=== PATIENT | male | born 1980 | race Caucasian/White ===

== ENCOUNTER → 2017-10-22 | Emergency (ER) | payer MEDICAID ==
[~2017-10-22] MED LIST: LIDOCAINE 4% CR TOP
[2017-10-22] MEDS: ACETAMINOPHEN 325 MG TAB PO (19:31)
[2017-10-22] MEDS: KETOROLAC 60 MG INJ IM (19:34)
== END | disposition home or self-care (01) ==
LOC: FTE 18:54
DX: J02.9 Acute pharyngitis, unspecified (principal); F17.210 Nicotine dependence, cigarettes, uncomplicated
CPT/HCPCS: 96372; 99284-25

== ENCOUNTER 2017-10-23 11:31 | Emergency (ER) | payer MEDICAID ==
[2017-10-23] MEDS: SOD CHLORIDE 0.9% 1,000 ML IV (13:21)
[2017-10-23] MEDS: METHYLPREDNISOLONE 125 MG INJ IV (13:23)
[2017-10-23] MEDS: KETOROLAC 15 MG INJ IV (13:23)
[2017-10-23] MEDS: CEFTRIAXONE 1 GM/50 ML (PMX) 50 ML IVPB (13:24)
== END 2017-10-23 15:10 | disposition home or self-care (01) ==
LOC: FTE 11:31
DX: J03.90 Acute tonsillitis, unspecified (principal); Z87.891 Personal history of nicotine dependence
CPT/HCPCS: 96361; 96365; 96375; 99284-25

== ENCOUNTER 2018-03-17 20:27 | Emergency (ER) | payer SELFPAY, MEDICAID ==
[2018-03-17] MEDS: DIPHTH/TET/ACEL PERTUSS (ADULT) 0.5 ML VIAL IM* (21:29)
[2018-03-17] MEDS: LIDOCAINE 2% (MDV) 20 ML INJ INJ (21:32)
[2018-03-17] MEDS: HYDROCODONE/APAP (10/325) TAB PO (22:58)
[2018-03-17] MEDS: BACITRACIN 0.9 GM OINT TOP (23:23)
[2018-03-17] MEDS: CLINDAMYCIN 300 MG INJ IM (23:29)
[2018-03-17] MEDS ORDERED: CLINDAMYCIN 600 MG INJ IM (23:30)
[2018-03-17] MEDS: morphine 4 MG/ML VIAL IM (23:56)
== END 2018-03-18 01:28 | disposition home or self-care (01) ==
LOC: FTE 03-18 01:28
DX: L03.011 Cellulitis of right finger (principal); L03.012 Cellulitis of left finger; F17.210 Nicotine dependence, cigarettes, uncomplicated; Z23 Encounter for immunization
CPT/HCPCS: 26011; 73130-50; 90471; 90715; 96372; 99284-25